=== PATIENT | female | born 1990 | race Two or more races ===

== ENCOUNTER 2018-05-20 16:59 | Emergency (ER) | payer MEDICAID ==
[~2018-05-20] VITALS: Ht 160 cm; Wt 86.6 kg
[2018-05-20 19:49] VITALS: BP 125/79
== END 2018-05-20 19:50 | disposition home or self-care (01) ==
LOC: EDSEX 16:59 → ED 18:38
DX: S16.1XXA Strain of muscle, fascia and tendon at neck level, initial encounter (principal); R51 Headache; V49.69XA Unspecified car occupant injured in collision with other motor vehicles in traffic accident, initial encounter; Y93.89 Activity, other specified; Y92.89 Other specified places as the place of occurrence of the external cause; Y99.8 Other external cause status
CPT/HCPCS: 70450; 72125; 99284